=== PATIENT | male | born 1950 | race Caucasian/White ===

== ENCOUNTER → 2023-06-01 12:35 | Outpatient (REF) | payer MEDICARE, SELFPAY | LOC: DHCBC/DCA 12:35 | PROVIDERS: ATTENDING PHYSICIAN Internal Medicine Cardiovascular Disease; FAMILY PHYSICIAN Internal Medicine | DX: I25.10 Atherosclerotic heart disease of native coronary artery without angina pectoris (principal) | CPT/HCPCS: 78452; 93017; A9500; J2785 ==

== ENCOUNTER 2023-11-10 09:57 | Day surgery (SDC) | payer MEDICARE, SELFPAY ==
[2023-11-10 10:30] VITALS: BMI 21.9
[2023-11-10 10:35] VITALS: BP 138/71
[2023-11-10 11:00] VITALS: BMI 21.9
[2023-11-10 12:15] VITALS: BP 118/56
[2023-11-10 12:30] VITALS: BP 122/67
[2023-11-10 12:45] VITALS: BP 123/63
== END 2023-11-10 13:17 | disposition home or self-care (01) ==
LOC: GI 09:57
PROVIDERS: ATTENDING PHYSICIAN Specialist
DX: K64.4 Residual hemorrhoidal skin tags (principal); R19.5 Other fecal abnormalities; R19.4 Change in bowel habit; K57.30 Diverticulosis of large intestine without perforation or abscess without bleeding; N40.0 Benign prostatic hyperplasia without lower urinary tract symptoms
CPT/HCPCS: 45380; 88305

== ENCOUNTER → 2024-02-17 13:46 | Outpatient (REF) | payer MEDICARE, SELFPAY | LOC: RCS 13:46 | PROVIDERS: ATTENDING PHYSICIAN Specialist; FAMILY PHYSICIAN Internal Medicine | DX: Z01.810 Encounter for preprocedural cardiovascular examination (principal); H25.11 Age-related nuclear cataract, right eye | CPT/HCPCS: 93005 ==

== ENCOUNTER → 2024-11-12 10:06 | Outpatient (REF) | payer MEDICARE, SELFPAY | LOC: RCS 10:06 | PROVIDERS: ATTENDING PHYSICIAN Internal Medicine | DX: I35.1 Nonrheumatic aortic (valve) insufficiency (principal) | CPT/HCPCS: 93306 ==